=== PATIENT | male | born 1970 | race Caucasian/White ===

== ENCOUNTER → 2024-04-06 | Outpatient (REF) | payer BC ==
[~2024-04-06] MED LIST: MULTI-VITAMIN1 EACH PO; NASOCORT; OVIDREL250 MCG/0. INJ; RED YEAST RICE600 MG PO; TESTOSTERONE IM; ZINC PO; [UNRECOGNIZED DRUG - OTHER] PO; [UNRECOGNIZED DRUG - OTHER] PO; [UNRECOGNIZED DRUG - OTHER] PO
[2024-04-06 16:22] LABS: BASOPHILS % 0.3 % (0.0-1.0); EOSINOPHILS # (AUTO) 0.1 (0.0-0.4); HEMATOCRIT 48.5 % (38.2-49.6); HEMOGLOBIN 16.1 g/dL (14.0-18.0); LYMPHOCYTES # (AUTO) 1.8 (1.0-3.2); LYMPHOCYTES % 21.1 % (18.0-39.1); MEAN CORPUSCULAR HEMOGLOBIN 30.2 pg (28-32); MEAN CORPUSCULAR HGB CONC 33.2 g/dL (31-35); MONOCYTES # (AUTO) 0.7 (0.2-0.8); MONOCYTES % 8.5 % (4.4-11.3); NEUTROPHILS % 68.5 % (38.7-80.0); PLATELET COUNT 212 x10e3/uL (140-360); RED BLOOD COUNT 5.33 x10e6/uL (4.3-5.7); RED CELL DISTRIBUTION WIDTH 13.3 % (11.7-14.4); WHITE BLOOD COUNT 8.69 x10e3/uL (4.8-10.8)
== END ==
LOC: RAD 15:51 → EDSTATUS 04-14 07:30
PROVIDERS: ATTEND Podiatrist Foot Surgery
DX: Z01.818 Encounter for other preprocedural examination (principal); M20.11 Hallux valgus (acquired), right foot; M20.41 Other hammer toe(s) (acquired), right foot
CPT/HCPCS: 36415; 71046; 85025; 93005